=== PATIENT | female | born 1950 | race Caucasian/White ===

== ENCOUNTER 2020-01-04 10:32 | Emergency (ER) | payer MEDICARE, OTHER ==
[2020-01-04] MEDS ORDERED: Bacitracin Oint 1 GM U/D Packet TOP ONE (11:01)
[2020-01-04] MEDS ORDERED: Diphtheria,Pertussis(Acell),Tetanus Vaccine 0.5 ML SDV IM ONE (11:11)
--- NOTE | 2020-01-04 11:30 | EDM.PDOC ---
ED HPI GENERAL MEDICAL PROBLEM - General Chief Complaint: Skin Complaint Stated Complaint: FISH HOOK Time Seen by Provider: 01/04/20 11:06 Source of Information: Reports: Patient, RN, RN Notes Reviewed History Limitations: Reports: No Limitations - History of Present Illness INITIAL COMMENTS - FREE TEXT/NARRATIVE: 69 yo female presents to the ED with one fish hook of a 3 prong hook stuck in the lateral finger pad of her left ring finger. [place] thinks that her tetanus is 8-9 years ago. Onset: Today Onset Date: 01/04/20 Location: Reports: Other (left ring finger) Quality: Reports: Throbbing Severity: Mild Improves with: Reports: Immobilization Worsens with: Reports: Movement - Related Data Allergies Allergy/AdvReac Type Severity Reaction Status Date / Time Sulfa (Sulfonamide Allergy Hives Verified 01/04/20 11:01 Antibiotics) Home Meds: Home Meds Cyclobenzaprine [Flexeril] 1 tab PO DAILY 01/04/20 [History] FLUoxetine HCl [Fluoxetine HCl] 1 tab PO DAILY 01/04/20 [History] LORazepam [Ativan] 1 tab PO DAILY 01/04/20 [History] Pantoprazole Sodium [Protonix] 1 tab PO DAILY 01/04/20 [History] hydroCHLOROthiazide [Hydrochlorothiazide] 1 tab PO DAILY 01/04/20 [History] Past Medical History - Past Health History Medical/Surgical History: Denies Medical/Surgical History Social & Family History - Tobacco Use Smoking Status *Q: Never Smoker ED ROS GENERAL - Review of Systems Review Of Systems: Comprehensive ROS is negative, except as noted in HPI. ED EXAM, SKIN/RASH Exam: See Below Exam Limited By: No Limitations General Appearance: Alert, WD/WN, No Apparent Distress Respiratory/Chest: No Respiratory Distress Skin: Warm, Dry, Wound/Incision (fish hook lateral finger pad of left ring finger) ED SKIN PROCEDURES - Foreign Body Removal Indication:: fish hook to left ring finger Consent Obtained:: Patient Performing Doctor:: Amira Oreilly Foreign Body Other Location Comment:: left ring finger Anesthesia Type: Local Complications:: No Comments:: area cleansed with alcohol and numbed with 1% lidocaine. fish hook advanced and thania cut off. remaining fish hook withdrawn without complications. Course - Vital Signs Last Recorded V/S: Last Vital Signs Temp 98.4 F 01/04/20 11:04 Pulse 86 01/04/20 11:04 Resp 14 01/04/20 11:04 BP 142/86 H 01/04/20 11:04 Pulse Ox 96 01/04/20 11:04 - Orders/Labs/Meds Orders: Active Orders 24 hr Category Date Time Status Vaccines to be Administered [RC] PER UNIT ROUTINE Care 01/04/20 11:12 Active Meds: Medications Discontinued Medications Generic Name Dose Route Start Last Admin Trade Name Marilu PRN Reason Stop Dose Admin Bacitracin 1 dose 01/04/20 11:01 01/04/20 11:13 Bacitracin Oint 1 Gm TOP 01/04/20 11:02 1 dose ONETIME ONE Administration Diphtheria/Tetanus/Acell Pertussis 0.5 ml 01/04/20 11:11 01/04/20 11:18 Adacel IM 01/04/20 11:12 0.5 ml .ONCE ONE Administration Lidocaine HCl 5 ml 01/04/20 11:01 01/04/20 11:13 Xylocaine-Mpf 1% INJECT 01/04/20 11:02 5 ml ONETIME ONE Administration Departure - Departure Time of Disposition: 11:26 Disposition: Home, Self-Care 01 Condition: Good Clinical Impression: Fish hook injury of finger of left hand - Discharge Information *PRESCRIPTION DRUG MONITORING PROGRAM REVIEWED*: Not Applicable *COPY OF PRESCRIPTION DRUG MONITORING REPORT IN PATIENT [place]: Not Applicable Referrals: PCP,None [Primary Care Provider] - Forms: ED Department Discharge Additional Instructions: wash puncture wound twice daily with soap and water. keep clean and dry. open to air. watch for signs of infection (redness, drainage, fever, red streaking) and return to ED or PCP if concerns are present. tetanus was updated today. Sepsis Event Note (ED) - Focused Exam Vital Signs: Vital Signs Temp Pulse Resp BP Pulse Ox 01/04/20 11:04 98.4 F 86 14 142/86 H 96 - My Orders Last 24 Hours: My Active Orders 01/04/20 11:12 Vaccines to be Administered [RC] PER UNIT ROUTINE - Assessment/Plan Last 24 Hours: My Active Orders 01/04/20 11:12 Vaccines to be Administered [RC] PER UNIT ROUTINE Plan: discharge home. tetanus updated. watch for signs of infection
== END 2020-01-04 11:37 | disposition home or self-care (01) ==
LOC: JP.ED 10:32
DX: S60.455A Superficial foreign body of left ring finger, initial encounter (principal); Z88.2 Allergy status to sulfonamides; Z79.899 Other long term (current) drug therapy; Z23 Encounter for immunization; W45.8XXA Other foreign body or object entering through skin, initial encounter
CPT/HCPCS: 90471; 90715; 99283; J2001